=== PATIENT | female | born 1990 | race Caucasian/White ===

== ENCOUNTER → 2018-11-22 | Outpatient (CLI) | payer OTHER | LOC: COL.RAD 12:20 | DX: G93.89 Other specified disorders of brain (principal); H49.12 Fourth [trochlear] nerve palsy, left eye; H53.2 Diplopia | CPT/HCPCS: A9585 ==

== ENCOUNTER → 2019-06-23 | Outpatient (CLI) | payer OTHER | LOC: COL.RAD 08:00 | DX: M54.5 Low back pain (principal) | CPT/HCPCS: Q9967 ==

== ENCOUNTER 2020-02-05 17:22 | Emergency (ER) | payer OTHER ==
[~2020-02-05] VITALS: Ht 165.1 cm; Wt 59.1 kg
[2020-02-05] MEDS ORDERED: DEPAKOTE500 MG (18:07)
[2020-02-05 18:33] LABS: BASO % 0.2 % (0.0-2.0); EOS % 0.2 % (0-4.0); GRAN # 4.6 (1.4-6.5); GRAN % 82.7 % (42.2-75.2); LYMPH # 0.5 (1.2-3.4); LYMPH % 8.1 % (20.0-51.0); MEAN CELL VOLUME 85 fl (80.0-100.0); MEAN CORPUSCULAR HEMOGLOBIN 31 pg (27.0-31.0); MEAN CORPUSCULAR HGB CONC 36 g/dl (33.0-37.0); MEAN PLATELET VOLUME 8.7 fl (7.4-10.4); MONO # 0.5 (0.1-0.6); MONO % 8.3 % (1.7-9.3); PLATELET COUNT 117 K/mm3 (130-400); RED BLOOD COUNT 4.24 M/mm3 (4.10-5.30); REDCELL DISTRIBUTION WIDTH-CV 12.5 % (11.5-14.5)
[2020-02-05 18:34] LABS: HEMATOCRIT 36.1 % (37.0-47.0)
[2020-02-05 18:51] LABS: ALANINE AMINOTRANSFERASE 11 U/L (4-34); ALBUMIN 4.4 gm/dL (3.5-5.0); ALKALINE PHOSPHATASE 50 U/L (50-136); ANION GAP 11 mmol/L (7-16); AST,SGOT 26 U/L (15-37); BILIRUBIN,TOTAL 0.5 mg/dL (0.0-1.0); BLOOD UREA NITROGEN 12 mg/dL (7-17); CALCIUM 9.7 mg/dL (8.4-10.2); CARBON DIOXIDE 24 mmol/L (22-30); CREATININE, serum 0.55 (0.52-1.25); GLUCOSE 111 mg/dL (74-106); POTASSIUM 4.3 mmol/L (3.4-5.0); SODIUM 123 mmol/L (137-145); TOTAL PROTEIN 7.7 gm/dL (6.4-8.2)
[2020-02-05 19:04] LABS: C-REACTIVE PROTEIN < 0.5 mg/dL (0.0-0.9); CHLORIDE 88 mmol/L (98-107)
[2020-02-05 19:05] LABS: PROLACTIN 33.4 ng/mL (3.0-18.6)
[2020-02-05 20:38] LABS: COLLECTION METHOD CLEAN CATCH
[2020-02-05 20:50] LABS: PH 7 (5-8); SQUAMOUS EPITHELIAL 0-2 /hpf; URINE APPEARANCE Clear; URINE BACTERIA None Seen /hpf; URINE BILIRUBIN Negative (NEGATIVE); URINE BLOOD Negative (NEGATIVE); URINE COLOR Yellow; URINE GLUCOSE Negative (NEGATIVE); URINE KETONE Trace (NEGATIVE); URINE LEUKOCYTE ESTERASE Negative (NEGATIVE); URINE NITRATE Negative (NEGATIVE); URINE PROTEIN(semi-quant) Negative (NEGATIVE); URINE RBC 0-2 /hpf; URINE UROBILINOGEN Negative (NEGATIVE)
[2020-02-05 21:36] VITALS: BP 121/94; PULSE 81; TEMP 98.3
== END 2020-02-05 21:27 | disposition short-term general hospital (02) ==
LOC: COL.ER 17:22
PROVIDERS: Family Medicine
DX: E87.1 Hypo-osmolality and hyponatremia (principal); R56.9 Unspecified convulsions; Z86.011 Personal history of benign neoplasm of the brain
CPT/HCPCS: J1170; J2060; J2405; J7030

== ENCOUNTER 2020-02-29 16:00 | Outpatient (RCR) | payer OTHER ==
[~2020-02-29 16:00] MED LIST: DEPAKOTE500 MG
== END 2020-05-26 | disposition home or self-care (01) ==
LOC: MKS.ESL.PT
DX: C71.9 Malignant neoplasm of brain, unspecified (principal); G91.1 Obstructive hydrocephalus